=== PATIENT | female | born 1980 | race Two or more races ===

== ENCOUNTER 2019-03-20 16:59 | Observation (INO) | payer OTHER ==
[2019-03-20 17:11] VITALS: BMI 24.9
--- NOTE | 2019-03-20 17:23 | PDOC ---
History of Present Illness - General Chief Complaint: Lightheaded Stated Complaint: CHEST PAIN/DIZZINESS Time Seen by Provider: 03/20/19 17:22 - History of Present Illness Initial Comments: 03/20/19 17:48 The patient is a 38 year old female with a history of asthma and anxiety who presents for evaluation of lightheadedness, palpitations, chest pain, and shortness of breath. The patient reports on episode of palpitations, chest tightness with associated shortness of breath and lightheadedness beginning 1 hour prior to presentation to the ED. She notes that she has had 2 more episodes over the past week presenting to an urgent care each time with negative blood work. She notes that she is on OCPs and otherwise denies fevers , chills, nausea, vomiting, abdominal pain, numbness, tingling, weakness, or changes with urination or bowel movements. Past History - Past Medical History Allergies/Adverse Reactions: Allergies Allergy/AdvReac Type Severity Reaction Status Date / Time No Known Allergies Allergy Verified 03/20/19 17:11 Home Medications: Ambulatory Orders Albuterol Sulfate Inhaler - [Ventolin Hfa Inhaler -] 2 inh PO Q4H 03/20/19 Buspirone HCl [Buspar -] 5 mg PO TID 03/20/19 Fluconazole [Diflucan -] 100 mg PO DAILY 03/20/19 Hydrocodone Bit/Homatrop Me-Br [Hydrocodone-Homatropine Syrup] 5 ml PO HS Asthma: Yes COPD: No - Suicide/Smoking/Psychosocial Hx Smoking History: Never smoked Review of Systems - Review of Systems Comments:: 03/20/19 17:55 Constitutional: No fevers, chills, fatigue, malaise HEENT: No Rhinorrhea, nasal congestion, visual changes Cardiovascular: Chest pain, lightheadedness, palpitations. No syncope, Respiratory: SOB. No Cough, Hemoptysis, Gastrointestinal: No Abdominal pain, Nausea, Vomiting, Constipation, Diarrhea, Melena Genitourinary: No Dysuria, Frequency, Urgency, Hesitancy, Hematuria, Flank pain Musculoskeletal: No Myalgia, arthralgia Skin: No rashes, itching, bruising, pallor Neurologic: No Headache, Dizziness, Numbness, Weakness, or Tingling Psychiatric: No Hallucinations. No SI or HI *Physical Exam - Vital Signs Last Vital Signs Temp Pulse Resp BP Pulse Ox 97.4 F L 105 H 20 137/88 99 03/20/19 17:06 03/20/19 17:06 03/20/19 17:06 03/20/19 17:06 03/20/19 17:06 - Physical Exam Comments: 03/20/19 17:58 General Appearance: Nourished. No Apparent Distress HEENT: No Pharyngeal Erythema, Tonsillar Exudate, Tonsillar Erythema Neck: No Cervical Lymphadenopathy Respiratory/Chest: Lungs Clear, Normal Breath Sounds. No Crackles, Rales, Rhonchi, Wheezing Cardiovascular: Regular Rhythm, Tachycardic Rate. No Murmur, Gallops, Rubs Gastrointestinal/Abdominal: Normal Bowel Sounds, Soft. No Guarding, Rebound, Tenderness Musculoskeletal: No CVA Tenderness Extremity: Normal Capillary Refill Integumentary: Normal Color, Dry, Warm Neurologic: Fully Oriented, Alert, Normal Mood/Affect, Normal Response, Heart Score/ECG Review #1 ECG reviewed & interpreted by me at: 17:58 03/20/19 17:58 HR 106 CO 116 QRS 68 QTc 446 Sinus Tachycardia No acute st changes ED Treatment Course - LABORATORY CBC & Chemistry Diagram: 03/20/19 18:25 03/20/19 18:25 Medical Decision Making - Medical Decision Making 03/20/19 17:59 The patient is a 38 year old female with a history of asthma and anxiety who presents for evaluation of lightheadedness, palpitations, chest pain, and shortness of breath. Differential includes but is not limited to: ACS, Arrhythmia, PE, Anxiety, Infectious, Metabolic Derangement. Given the patient' s history and physical exam, we will obtain a cbc, cmp, coags, d-dimer, troponin , bnp, ua, urine preg, tsh, ekg, chest plain film to evaluate further. We will continue to monitor and reassess while here in the ED. 03/20/19 20:33 CBC, cmp, coags, d-dimer, troponin, bnp, UA are unremarkable. Tsh, urine preg are unremarkable. Chest plain film is unremarkable. The patient remains persistently symptomatic despite treatment with ativan here in the ED. Given her frequent presentations to healthcare facilities this past week with persistent symptoms here in the ED, she will require observation admission for further monitoring and cardiology consultation. We discussed the case with the admitting team who accepted the patient for admission. *DC/Admit/Observation/Transfer Diagnosis at time of Disposition: Shortness of breath, Tachycardia Chest pain Qualifiers: Chest pain type: unspecified Qualified Code(s): R07.9 - Chest pain, unspecified - Discharge Dispostion Condition at time of disposition: Stable Decision to Admit order: Yes - Referrals - Patient Instructions - Post Discharge Activity
[2019-03-20] MEDS ORDERED: SODIUM CHLORIDE 1,000 ML IV STA (17:45)
--- NOTE | 2019-03-20 18:30 | PDOC ---
Documentation entered by Renetta Conteh SCRIBE, acting as scribe for Dino Hardwick MD. Dino Hardwick MD: This documentation has been prepared by the Wero mendoza Aiswarya, SCRIBE, under my direction and personally reviewed by me in its entirety. I confirm that the documentation accurately reflects all work, treatment, procedures, and medical decision making performed by me. Attending Attestation - Resident Resident Name: Renard Perry - ED Attending Attestation I have performed the following: I have examined & evaluated the patient, The case was reviewed & discussed with the resident, I agree w/resident's findings & plan, Exceptions are as noted - HPI HPI: 03/20/19 18:05 38-year-old female with past medical history of asthma presents with palpitations. The patient reported that this is her third episode. She reports 6 days ago, the patient her to feel rapid palpitations associated lightheadedness and chest discomfort. She also had the similar symptoms 5 days ago as well. The patient went to an urgent care and then to Health system emergency department. She reported she received blood work and a chest x-ray and was told that her workup is unremarkable and she was discharged. Today, patient woke up feeling unremarkable. Approximate 4 PM, she was doing nothing particular which she felt sudden onset of rapid palpitations lightheadedness and shortness of breath. Reports some chest discomfort. Patient denies smoking history. Patient has family history of hypertension but no other cardiac disease. She stated that the symptoms have not occurred prior before. She denies feeling anxious prior to the event. She does report feeling somewhat nervous now. Denies recent illnesses, fevers, chills, cough, vomiting, diarrhea. Patient never had a prior cardiac workup including stress tests, Holter monitor or echocardiogram. Because the symptoms have returned, the patient return to the ER for evaluation. Doing medications patient is taking at this moment his fluconazole for recent oral thrush infection for recent prednisone she was taken for an asthma exacerbation. She is also on daily oral contraceptive pills. Denies unilateral calf swelling, calf pain, recent surgeries or hormonal use. - Physicial Exam PE: 03/20/19 18:10 GENERAL: Awake, alert, and fully oriented, in no acute distress HEAD: No signs of trauma EYES: EOMI, sclera anicteric, conjunctiva clear ENT: Auricles normal inspection, hearing grossly normal, nares patent, Moist mucosa NECK: Normal ROM, supple, LUNGS: Breath sounds equal, clear to auscultation bilaterally. No wheezes, and no crackles HEART: Regular rate and rhythm, normal S1 and S2, no murmurs, rubs or gallops ABDOMEN: Soft, nontender, No guarding, no rebound. No masses EXTREMITIES: Normal range of motion, no edema. No clubbing or cyanosis. No cords, erythema, or tenderness NEUROLOGICAL: Cranial nerves II through XII grossly intact. Normal speech, normal gait SKIN: Warm, Dry, normal turgor, no rashes or lesions noted. - Medical Decision Making 03/20/19 18:27 Vital Signs Temp Pulse Resp BP Pulse Ox 97.4 F L 105 H 20 137/88 99 03/20/19 17:06 03/20/19 17:06 03/20/19 17:06 03/20/19 17:06 03/20/19 17:06 38-year-old female presents for third episode of palpitations and lightheadedness. At this time, it is unclear what the etiology of her symptoms are. The EKG does not demonstrate any acute findings at this time. However, we' ll need to further investigate given this is a recurrent visit to the emergency department. Given that the patient is on oral contraceptive pills, we'll need to investigate for potential pulmonary embolism. We'll send a d-dimer. Place patient on cardiac telemetry. Chest x-ray and blood work. Obtain thyroid panel to rule out hyperthyroidism. If the patient remains persistently tachycardic and or symptomatically even with a negative ER workup, the patient should be admitted to the hospital for cardiac consultation, telemetry, and potential other tests including stress test or echocardiogram. Patient does appear somewhat anxious to me and after discussion with the patient, she agrees to trial a small dose of Ativan for relief. 03/20/19 20:09 CBC, BMP 03/20/19 18:25 03/20/19 18:25 CMP Sodium 140 mmol/L (136-145) 03/20/19 18:25 Potassium 4.2 mmol/L (3.5-5.1) 03/20/19 18:25 Chloride 109 mmol/L (98-107) H 03/20/19 18:25 Carbon Dioxide 24 mmol/L (21-32) 03/20/19 18:25 Anion Gap 8 MMOL/L (8-16) 03/20/19 18:25 BUN 9.8 mg/dL (7-18) 03/20/19 18:25 Creatinine 0.8 mg/dL (0.55-1.3) 03/20/19 18:25 Est GFR (CKD-EPI)AfAm 106.88 03/20/19 18:25 Est GFR (CKD-EPI)NonAf 92.22 03/20/19 18:25 Random Glucose 90 mg/dL (74-106) 03/20/19 18:25 Calcium 9.4 mg/dL (8.5-10.1) 03/20/19 18:25 Total Bilirubin 0.3 mg/dL (0.2-1) 03/20/19 18:25 AST 38 U/L (15-37) H 03/20/19 18:25 ALT 34 U/L (13-61) 03/20/19 18:25 Alkaline Phosphatase 47 U/L (45-117) 03/20/19 18:25 Creatine Kinase 1170 U/L (26-192) H 03/20/19 18:25 Creatine Kinase Index 0.1 % (0.0-5.0) 03/20/19 18:25 CK-MB (CK-2) 2.2 ng/mL (0.5-3.6) 03/20/19 18:25 Troponin I < 0.02 ng/ml (0.00-0.05) 03/20/19 18:25 B-Natriuretic Peptide 16.9 pg/ml (5-125) 03/20/19 18:25 Total Protein 7.6 g/dl (6.4-8.2) 03/20/19 18:25 Albumin 4.2 g/dl (3.4-5.0) 03/20/19 18:25 TSH 0.58 uIU/ml (0.358-3.74) 03/20/19 18:25 Urine Test Results Urine Color Yellow 03/20/19 18:25 Urine Appearance Clear 03/20/19 18:25 Urine pH 6.0 (5.0-8.0) 03/20/19 18:25 Ur Specific [place] 1.002 (1.010-1.035) L 03/20/19 18:25 Urine Protein Negative (NEGATIVE) 03/20/19 18:25 Urine Glucose (UA) Negative (NEGATIVE) 03/20/19 18:25 Urine Ketones Negative (NEGATIVE) 03/20/19 18:25 Urine Blood Negative (NEGATIVE) 03/20/19 18:25 Urine Nitrite Negative (NEGATIVE) 03/20/19 18:25 Urine Bilirubin Negative (NEGATIVE) 03/20/19 18:25 Ur Leukocyte Esterase Negative (NEGATIVE) 03/20/19 18:25 Despite negative results (other than CK of 1170, but negative troponin), will admit patient as pt continues to feel persistent symptoms of palpitations and lightheadedness. Because this is her third time this week being evaluated and with negative but with persistent symptoms, will admit patient. Cardiology paged. Pt to be admitted to telemetry. Heart Score/ECG Review #1 ECG reviewed & interpreted by me at: 17:30 03/20/19 17:51 NSR 106, no std/teddy, normal axis, normal intervals, QTC 68 msec, no brugada, no HCM, no WPW
[2019-03-20 18:38] LABS: HCG,QUALITATIVE URINE Negative
[2019-03-20] MEDS ORDERED: LORazepam 1 MG TABLET PO ONE (18:42)
[2019-03-20 18:47] LABS: URINE APPEARANCE CLEAR; URINE BILIRUBIN NEGATIVE (NEGATIVE); URINE COLOR YELLOW; URINE GLUCOSE (UA) NEGATIVE (NEGATIVE); URINE KETONE NEGATIVE (NEGATIVE); URINE LEUK ESTERASE NEGATIVE (NEGATIVE); URINE NITRITE NEGATIVE (NEGATIVE); URINE PROTEIN NEGATIVE (NEGATIVE); URINE UROBILINOGEN 0.2 mg/dL (0.2-1.0)
[2019-03-20 19:00] LABS: BASO % 0.7 % (0-2.0); EOS % 0.8 % (0-4.5); HEMATOCRIT 41.7 % (32.4-45.2); HEMOGLOBIN 13.8 GM/dL (10.7-15.3); LYMPH % 11.9 % (8-40); MCH 31.2 pg (25.7-33.7); MCHC 33.1 g/dl (32.0-36.0); MEAN CELL VOLUME 94.2 fl (80-96); MEAN PLT VOLUME 8.8 fl (7.5-11.1); MONO % 6.8 % (3.8-10.2); NEUT % 79.8 % (42.8-82.8); RBC 4.42 M/mm3 (3.60-5.2); RDW 13.8 % (11.6-15.6); WHITE BLOOD COUNT 9.4 K/mm3 (4.0-10.0)
[2019-03-20 19:06] LABS: PLATELET COUNT 348 K/MM3 (134-434)
[2019-03-20 19:08] LABS: INR 0.97 (0.83-1.09); PROTHROMBIN TIME (PATIENT) 11.5 SEC (9.7-13.0)
[2019-03-20 19:11] LABS: ACTIVATED PTT 28.4 SECONDS (25.2-36.5)
[2019-03-20 19:14] LABS: ALBUMIN 4.2 g/dl (3.4-5.0); ALK PHOS 47 U/L (45-117); ANION GAP 8 MMOL/L (8-16); BILIRUBIN,TOTAL 0.3 mg/dL (0.2-1); BLOOD UREA NITROGEN 9.8 mg/dL (7-18); CALCIUM 9.4 mg/dL (8.5-10.1); CHLORIDE 109 mmol/L (98-107); CO2 24 mmol/L (21-32); CREATININE 0.8 mg/dL (0.55-1.3); GLUCOSE,RANDOM 90 mg/dL (74-106); N-TERMINAL BNP 16.9 pg/ml (5-125); POTASSIUM 4.2 mmol/L (3.5-5.1); SGOT/AST 38 U/L (15-37); SGPT/ALT 34 U/L (13-61); SODIUM 140 mmol/L (136-145); TOT PROT 7.6 g/dl (6.4-8.2)
[2019-03-20] MEDS ORDERED: LORazepam 0.5 MG TABLET ONE (19:37)
[2019-03-20] MEDS ORDERED: ASPIRIN 81 MG CHEWABLE TABLETS PO ONE (20:12)
[2019-03-20] MEDS ORDERED: ASPIRIN 81 MG CHEWABLE TABLETS ONE (21:00)
--- NOTE | 2019-03-20 21:06 | HP ---
Admitting History and Physical - Primary Care Physician PCP: Dr Santos ([facility]) - Admission Chief Complaint: Dizziness and Palpitations History of Present Illness: Pt is 38 yr old f with PMHx of asthma and recently prescribed meds for anxiety presenting after feeling dizzy with palpitations and SOB while walking on the park today. Patient was with friends when it happened, reports it as sudden, nausea, with dizziness, and acute SOB not related to exertion. Pt did not syncopize, took some water but still felt weak. No fevers, no chills, no headaches. Pt reports dizziness but no vertigo, no hearing loss or tinnitus, and has not missed any meals or had vomiting or loose stools. Has been having recurrent symptoms with palpitations and chest tightness since December and has been following her PCP with [facility] for asthma exacerbation. Pt has had 2 steroid tapers since beginning of February, (40mg prednisone for one week from February 22, then 60mg since March 07, stopped on March 15). Pt been treated for oral trush and told her BP has been elevated since seeing her PCP about 3 times in the past month. Prior to this recent tx for asthma, pt reported mild intermittent asthma treated with albuterol inhaler about twice a year. No new pets, no new location, no sick contacts. In December, pt received acyclovir for shingles on the back as she had chicken pox as a child. No hx of migraines. Three months ago, she started a higher dose of OCP. She had been on an OCP for 3 years prior but with irregular menses, hasd the dose escalated recently. Pt admits to having anxiety in past and not been formally diagnosed with anxiety disorder. She denies mood disorders. She is scheduled for a visit with a ocean import representative tomorrow. 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, no contact with harmful chemicals Lives with and kids Denies- ETOH- occ Tobacco denies Drugs-denies History Source: Patient Limitations to Obtaining History: No Limitations - Smoking History Smoking history: Never smoked Home Medications - Allergies Allergies/Adverse Reactions: Allergies Allergy/AdvReac Type Severity Reaction Status Date / Time No Known Allergies Allergy Verified 03/20/19 17:11 - Home Medications Home Medications: Ambulatory Orders Albuterol Sulfate Inhaler - [Ventolin Hfa Inhaler -] 2 inh PO Q4H 03/20/19 Buspirone HCl [Buspar -] 5 mg PO TID 03/20/19 Fluconazole [Diflucan -] 100 mg PO DAILY 03/20/19 Hydrocodone Bit/Homatrop Me-Br [Hydrocodone-Homatropine Syrup] 5 ml PO HS Family Disease History - Family Disease History Family Disease History: Heart Disease: Father (HTN), Mother (HTN, stent), Other : Son (Asthma), Daughter (Asthma) Review of Systems - Review of Systems Constitutional: denies: Chills, Diaphoresis, Fever, Loss of Appetite, Night Sweats Eyes: reports: Photophobia. denies: Blind Spots, Blurred Vision HENT: reports: Difficult Swallowing. denies: Hearing Loss, Throat Pain Neck: denies: Stiffness Cardiovascular: reports: Palpitations, Shortness of Breath. denies: Edema Respiratory: reports: Cough. denies: Exercise Intolerance, SOB on Exertion, Wheezing Gastrointestinal: denies: Abdominal Pain, Constipation, Diarrhea, Vomiting Genitourinary: reports: Frequency, Incontinence. denies: Burning, Discharge Musculoskeletal: denies: Back Pain Integumentary: denies: Blister, Bruising Neurological: denies: Change in LOC, Change in Speech, Confusion, Parasthesia Endocrine: reports: Increased Thirst, Unexplained Weight Gain. denies: Excessive Sweating, Increased Hunger, Unexplained Weight Loss Hematology/Lymphatic: denies: Easily Bruised Psychiatric: reports: Anxiety Physical Examination Vital Signs: Vital Signs Temperature 97.4 F L 03/20/19 17:06 Pulse Rate 103 H 03/20/19 19:44 Respiratory Rate 11 03/20/19 19:44 Blood Pressure 134/95 03/20/19 19:44 O2 Sat by Pulse Oximetry (%) 100 03/20/19 19:44 Constitutional: Yes: Anxious. No: No Distress Eyes: Yes: Conjunctiva Clear, EOM Intact, PERRL. No: Ptosis, Sclera Icterus HENT: Yes: Atraumatic Neck: Yes: Supple Cardiovascular: Yes: Tachycardia, S1, S2 Respiratory: Yes: CTA Bilaterally, Cough. No: Rhonchi, Tachypnea, Wheezes Gastrointestinal: Yes: Normal Bowel Sounds, Soft. No: Tenderness Renal/: Yes: Incontinence. No: CVA Tenderness - Left, CVA Tenderness - Right Musculoskeletal: No: Joint Stiffness, Joint Swelling, Muscle Weakness Edema: No Peripheral Pulses WNL: Yes Integumentary: Yes: Rash. No: Bruising, Petechiae, Pressure Ulcer Neurological: Yes: Alert, Oriented, Cran Nerves II-XII Intact. No: Babinski negative, Facial Droop, Lethargy, Pre-Existing Deficit, Seizure, Tingling, Tremors, Unsteady Gait, Weakness ...Motor Strength: WNL Psychiatric: Yes: Alert, Oriented Labs: CBC, BMP 03/20/19 18:25 03/20/19 18:25 Imaging - Results X-ray: Image Reviewed Assessment/Plan Current Medications Alprazolam (Xanax -) 0.25 mg PO Q8H PRN PRN Reason: ANXIETY Lisinopril (Prinivil) 10 mg PO DAILY SIGIFREDO Last Admin: 03/20/19 22:13 Dose: 10 mg Ambulatory Orders Albuterol Sulfate Inhaler - [Ventolin Hfa Inhaler -] 2 inh PO Q4H 03/20/19 Buspirone HCl [Buspar -] 5 mg PO TID 03/20/19 Fluconazole [Diflucan -] 100 mg PO DAILY 03/20/19 Hydrocodone Bit/Homatrop Me-Br [Hydrocodone-Homatropine Syrup] 5 ml PO HS Assessment/Plan: Pt is a 38 yr old F with asthma, recent anxiety diagnosis, recent steroid taper , on escalated OCPS, presenting with palpitations and chest tightness found to be in sinus tachycardia and hypertensive #Palpitations Sinus tachy, no ishemic changes Initial trop negative Likely in setting of anxiety Patient started on buspirone, has received only 2 doses Xanax 0.25 q8h Prn Cont buspar utox pending Ddimer< 215, TSH- 0.58 #Chest tightness R/O ACP Unlikely cardiac chest pain, more likely anxiety related Initial trops negative, will repeat Cards consult- Dr Day Repeat EKG tele obs Consider holter monitoring ECHO likely to be normal may hold off for now #Anxiety disorder Per pt has not been formally diagnosed Recently prescribed buspar over the past week stopped taking the medication because she did not feel improved Psych consult- Dr Jarad ramírez Cont buspar #asthma Not in any exacerbation Described mild intermittent on only albuterol 2 times a year Recently on PO steroid taper for up to 3 weeks Stopped steroids last Thursday PO Steroids could contribute to cardiac symptoms Cont Albuterol PRN if needed (would hold for now, as tachycardiac) Consider home steroid inhalers on discharge Abg- negative, pt sating well in room air #Tachycardia Sinus tachy, no fever, nl TSH, no pain Likely in setting of anxiety Cont xanax, buspar Psych consult No white count, UA, CXR negative Ddimer- negative, Well's score for PE-1.5 (low risk) #High bLood pressure Elevated up to 147/105 (standing) Could have been precipitated by steroids Fhx of HTN Lisinopril 10mg daily Stop steroids #Elevated isolated [id number] 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 - New Patient This patient is new to me today: Yes Date on this admission: 03/20/19 - Critical Care Critical Care patient: No
--- NOTE | 2019-03-20 21:55 | PN ---
Teaching Attending Note Name of Resident: Cathy Sotelo ATTENDING PHYSICIAN STATEMENT I saw and evaluated the patient. Chart, data, imaging reviewed. I reviewed the resident's note and discussed the case with the resident. I agree with the resident's findings and plan as documented. SUBJECTIVE: 38yo woman with anxiety, intermittent asthma c/o palpitations and anxiety for several days, was previously on prednisone po rx- ed by her pcp for - intermittent asthma, now off prednisone for at least a week. Denied any chest pain. OBJECTIVE: Last Vital Signs Temp Pulse Resp BP Pulse Ox 97.4 F L 103 H 11 134/95 100 03/20/19 17:06 03/20/19 19:44 03/20/19 19:44 03/20/19 19:44 03/20/19 19:44 General- appears anxious, nontoxic heent- at, nc, moist mucous membranes cv- s1+S2+ tachycardia chest - cta b/l abdomen- soft, nt ext -no pedal edema Abnormal Lab Results 03/20/19 03/20/19 03/20/19 18:25 18:25 21:36 ABG pCO2 at Pt Temp 30.1 L ABG pO2 at Pt Temp 115 H ABG HCO3 20.0 L ABG O2 Sat (Measured) 98.7 H ABG Base Excess -2.7 L Chloride 109 H AST 38 H Creatine Kinase 1170 H Ur Specific [place] 1.002 L ekg- sinus tachy cxr- wnl ASSESSMENT AND PLAN: #Sinus tachycardia likely related to underlying anxiety. Normal tsh. Intermittent palpitations- occult arrythmia? -tele-obs -xanax prn -c/w buspirone -monitor on tele -psych eval -cardiology eval - possible holter? -urine toxicology screen #HTN -2g Na diet -lisinopril 10mg po daily #dvt ppx -scds
[2019-03-20] MEDS ORDERED: ALPRAZolam 0.25 MG TABLET PO PRN (21:59)
[2019-03-20 22:01] LABS: ARTERIAL BLD GAS O2 SATURATION 98.7 % (95-98); ARTERIAL BLOOD GAS BASE EXCESS -2.7 meq/l (-2-2); ARTERIAL BLOOD GAS PCO2 30.1 mmHg (35-45); ARTERIAL BLOOD GAS PO2 115 mmHg (80-105); ARTERIAL BLOOD GAS pH 7.44 (7.35-7.45)
[2019-03-20 22:04] LABS: MAGNESIUM 2.2 mg/dL (1.8-2.4)
[2019-03-20] MEDS ORDERED: LISINOPRIL 5 MG TABLET (FP) ONE (22:10)
[2019-03-20] MEDS: LISINOPRIL 10 MG TABLET (FP) PO SCH (22:13)
[2019-03-20] MEDS ORDERED: ALBUTEROL SO4 8 GM HFA INHALER IH PRN (22:34)
[2019-03-21] MEDS: busPIRone HCL 5 MG TABLET PO SCH ×3 (00:27→15:03)
[2019-03-21] MEDS ORDERED: busPIRone HCL 5 MG TABLET ONE (02:25)
[2019-03-21 06:57] LABS: BASO % 1.8 % (0-2.0); EOS % 4.1 % (0-4.5); HEMATOCRIT 36.4 % (32.4-45.2); HEMOGLOBIN 11.9 GM/dL (10.7-15.3); LYMPH % 19.2 % (8-40); MCH 30.9 pg (25.7-33.7); MCHC 32.8 g/dl (32.0-36.0); MEAN CELL VOLUME 94.2 fl (80-96); MEAN PLT VOLUME 8.6 fl (7.5-11.1); MONO % 10.7 % (3.8-10.2); NEUT % 64.2 % (42.8-82.8); PLATELET COUNT 279 K/MM3 (134-434); RBC 3.87 M/mm3 (3.60-5.2); RDW 13.8 % (11.6-15.6); WHITE BLOOD COUNT 5.4 K/mm3 (4.0-10.0)
[2019-03-21 07:17] LABS: INR 1.03 (0.83-1.09); PROTHROMBIN TIME (PATIENT) 12.1 SEC (9.7-13.0)
[2019-03-21 07:20] LABS: ACTIVATED PTT 28.4 SECONDS (25.2-36.5)
[2019-03-21 07:28] LABS: ALBUMIN 3.2 g/dl (3.4-5.0); BILIRUBIN,TOTAL 0.6 mg/dL (0.2-1); BLOOD UREA NITROGEN 5.3 mg/dL (7-18); CALCIUM 8.5 mg/dL (8.5-10.1); CREATININE 0.7 mg/dL (0.55-1.3); MAGNESIUM 2.4 mg/dL (1.8-2.4); PHOSPHOROUS 3.4 mg/dL (2.5-4.9); POTASSIUM 4.2 mmol/L (3.5-5.1); TOT PROT 5.9 g/dl (6.4-8.2)
--- NOTE | 2019-03-21 09:35 | EKG ---
Test Reason : Blood Pressure : / mmHG Vent. Rate : 106 BPM Atrial Rate : 106 BPM P-R Int : 116 ms QRS Dur : 068 ms QT Int : 336 ms P-R-T Axes : 060 -09 048 degrees QTc Int : 446 ms SINUS TACHYCARDIA POSSIBLE LEFT ATRIAL ENLARGEMENT BORDERLINE ECG NO PREVIOUS ECGS AVAILABLE Confirmed by DERRICK DRAKE MD ([id number]) on 03/21/2019 9:35:03 AM Referred By: Confirmed By:DERRICK DRAKE MD
[2019-03-21] MEDS ORDERED: LISINOPRIL 5 MG TABLET (FP) ONE (10:21)
[2019-03-21] MEDS: LISINOPRIL 10 MG TABLET (FP) PO SCH (10:24)
--- NOTE | 2019-03-21 10:44 | CON.CARD ---
Consult Consult Specialty:: Cardiology Referred by:: Hospitalist Reason for Consultation:: Cardiac evaluation - History of Present Illness Chief Complaint: Palpitations History of Present Illness: Patient is a 38 year old female with underlying history of bronchial asthma who presents with palpitations. She was at [facility] ER last Thursday when she was sent from [facility] with palpitations. She was discharged home after observation. She complained of another episode over the weekend which prompted her to come into ED here at [facility]. She also complained of dizziness. She denies chest pain or shortness of breath. She denies paroxysmal nocturnal dyspnea or orthopnea. She denies fever or chills. She denies nausea, vomiting, diarrhea or abdominal pain. She states she did not take any bronchodilators prior to the palpitations. She appears comfortable this am. Denies prior syncopal episodes - History Source History Provided By: Patient, Medical Record Limitations to Obtaining History: No Limitations - Past Medical History Pulmonary: Yes: Asthma - Past Surgical History Additional Surgical History: s/p oopherectomy (1 ovary), breast implant - Alcohol/Substance Use Hx Alcohol Use: No History of Substance Use: reports: None - Smoking History Smoking history: Never smoked Home Medications - Allergies Allergies/Adverse Reactions: Allergies Allergy/AdvReac Type Severity Reaction Status Date / Time No Known Allergies Allergy Verified 03/20/19 17:11 - Home Medications Home Medications: Ambulatory Orders Albuterol Sulfate Inhaler - [Ventolin Hfa Inhaler -] 2 inh PO Q4H 03/20/19 Buspirone HCl [Buspar -] 5 mg PO TID 03/20/19 Fluconazole [Diflucan -] 100 mg PO DAILY 03/20/19 Hydrocodone Bit/Homatrop Me-Br [Hydrocodone-Homatropine Syrup] 5 ml PO HS Family Disease History - Family Disease History Family Disease History: Heart Disease: Father (HTN), Mother (HTN, stent), Other : Son (Asthma), Daughter (Asthma) Review of Systems - Review of Systems Constitutional: denies: Chills, Fever Cardiovascular: reports: Palpitations. denies: Chest Pain, Shortness of Breath Respiratory: denies: Cough, Hemoptysis, Orthopnea, PND, SOB, SOB on Exertion, Wheezing Gastrointestinal: denies: Abdominal Pain, Constipation, Diarrhea, Melena, Nausea , Rectal Bleeding, Vomiting Musculoskeletal: denies: Back Pain, Joint Pain Neurological: reports: Dizziness. denies: Headache, Seizure, Syncope Vital Signs: Vital Signs Temperature 97.8 F 03/21/19 05:16 Pulse Rate 85 03/21/19 05:16 Respiratory Rate 20 03/21/19 05:16 Blood Pressure 101/67 03/21/19 05:16 O2 Sat by Pulse Oximetry (%) 100 03/21/19 05:16 Eyes: Yes: PERRL HENT: Yes: Atraumatic Neck: Yes: Supple Respiratory: Yes: CTA Bilaterally Gastrointestinal: Yes: Normal Bowel Sounds, Soft. No: Tenderness Cardiovascular: Yes: Regular Rate and Rhythm JVD: No Carotid Bruit: No PMI: Non-Displaced Heart Sounds: Yes: S1, S2. No: Gallop Murmur: No: Systolic Murmur, Diastolic Murmur Edema: No - Other Data Labs, Other Data: CBC, BMP 03/21/19 06:30 03/21/19 06:30 INR, PTT INR 1.03 (0.83-1.09) 03/21/19 06:30 Troponin, BNP 03/20/19 03/20/19 18:25 23:48 Troponin I < 0.02 < 0.02 B-Natriuretic Peptide 16.9 Sinus tachycardia, nonspecific T abnormality Echo: Pending Problem List - Problems (1) Palpitations Code(s): R00.2 - PALPITATIONS (2) Sinus tachycardia by electrocardiogram Code(s): R00.0 - TACHYCARDIA, UNSPECIFIED (3) Elevated CK Code(s): R74.8 - ABNORMAL LEVELS OF OTHER SERUM ENZYMES Assessment/Plan 1. Palpitations (currently sinus tachycardia) 2. Bronchial asthma 3. Elevated CK, ? etiology PLAN: 1. Etiology of above palpitations to be evaluated 2. Echocardiography to assess LV/RV and valvular function 3. Telemetry monitoring and if needed will need extended heart monitoring ? inappropriate sinus tachycardia 4. Trend CK 5. Further plans are to follow Avel Day MD
[2019-03-21] MEDS ORDERED: FLUCONAZOLE 100 MG TABLET (UD) PO SCH (12:45)
[2019-03-21] MEDS ORDERED: FLUCONAZOLE 100 MG TABLET (UD) ONE ×2 (12:51→15:42)
[2019-03-21 13:37] LABS: COCAINE, UR NEGATIVE ng/ml (CUTOFF=300); METHADONE, UR NEGATIVE ng/ml (CUTOFF=300); OPIATES, URI NEGATIVE ng/ml (CUTOFF=300); PHENCYCLIDINE,URINE NEGATIVE ng/ml (CUTOFF=25); URINE AMPHETAMINES NEGATIVE ng/ml (CUTOFF=500); URINE BARBITURATES NEGATIVE ng/ml (CUTOFF=200); URINE BENZODIAZEPINES NEGATIVE ng/ml (CUTOFF=200)
[2019-03-21] MEDS ORDERED: FLUCONAZOLE 150 MG TABLET PO SCH (15:15)
--- NOTE | 2019-03-21 16:15 | ECHO ---
Name: LANCE BAIRES Exam:Adult Echocardiogram Study Date: 03/21/2019 02:16 PM Age: 38 yrs Reason For Study: palpitations Height: 61 in Weight: 136 lb BSA: 1.6 m2 MMode/2D Measurements & Calculations IVSd: 0.77 cm Ao root diam: 3.1 cm LVIDd: 3.6 cm LA dimension: 2.7 cm LVIDs: 2.4 cm LVPWd: 0.79 cm IVSs: 0.89 cm LVPWs: 1.1 cm EDV(Teich): 55.4 ml ESV(Teich): 20.9 ml Doppler Measurements & Calculations MV E max jayme: 91.3 cm/sec Ao V2 max: 114.0 cm/sec MV A max jayme: 76.0 cm/sec Ao max P.2 mmHg MV E/A: 1.2 Ao V2 mean: 83.5 cm/sec Ao mean P.2 mmHg Ao V2 VTI: 20.3 cm TR max jayme: 203.6 cm/sec Med Peak E' Jayme: 8.8 cm/sec TR max P.6 mmHg Med E/e': 10.4 Lat Peak E' Jayme: 13.3 cm/sec Lat E/e': 6.9 Procedure A complete two-dimensional transthoracic echocardiogram was performed (2D, M-mode, Doppler and color flow Doppler). Technically limited study. Left Ventricle The left ventricle is normal in size. Left ventricular systolic function is normal. Ejection Fraction = 60- 65%. No regional wall motion abnormalities noted. Right Ventricle The right ventricle is normal size. The right ventricular systolic function is normal. Atria The left atrial size is normal. Right atrial size is normal. Mitral Valve The mitral valve is normal in structure and function. There is no mitral regurgitation noted. Tricuspid Valve The tricuspid valve is normal in structure and function. There is mild tricuspid regurgitation. Right ventricular systolic pressure is normal. Aortic Valve The aortic valve is normal in structure and function. No aortic regurgitation is present. Pulmonic Valve The pulmonic valve is not well visualized. Great Vessels The aortic root is normal size. Pericardium/Pleura There is no pericardial effusion. Interpretation Summary The left ventricle is normal in size. Left ventricular systolic function is normal. No regional wall motion abnormalities noted. Ejection Fraction = 60-65%. The right ventricular systolic function is normal. The left atrial size is normal. Right atrial size is normal. There is mild tricuspid regurgitation. Right ventricular systolic pressure is normal. There is no pericardial effusion. Previous study is not available for comparison Avel Day MD 03/21/2019 04:15 PM
--- NOTE | 2019-03-21 16:25 | DS ---
Physical Exam: SUBJECTIVE: Patient assessed at bedside today. She complains of a sore throat with resolving shortness of breath. Echo performed today with results below. Patient has agreed to HIV testing. OBJECTIVE: Vital Signs Period Temp Pulse Resp BP Sys/Perez Pulse Ox Last 24 Hr 97.4 F-98.4 F 82-105 11-20 101-137/67-95 98-100 PHYSICAL EXAM GENERAL: AAOx3 NAD HEENT: Normocephalic atraumatic. No lymphadenopathy. NECK: Mildly tender. LUNGS: B/l mid and lower lung lobe wheezing noted HEART: Regular rate and rhythm, S1, S2 without murmur, rub or gallop. ABDOMEN: Soft, NTND, + bowel sounds, no guarding, no rebound, no hepatosplenomegaly, no masses. EXTREMITIES: 2+ pulses, warm, well-perfused, no edema. PSYCH: Normal mood, normal affect. SKIN: Warm, dry, normal turgor, no rashes or lesions noted. LABS Laboratory Results - last 24 hr 03/20/19 03/20/19 03/20/19 11:55 18:25 18:25 WBC 9.4 RBC 4.42 Hgb 13.8 Hct 41.7 MCV 94.2 MCH 31.2 MCHC 33.1 RDW 13.8 Plt Count 348 MPV 8.8 Absolute Neuts (auto) 7.5 Neutrophils % 79.8 Lymphocytes % 11.9 Monocytes % 6.8 Eosinophils % 0.8 Basophils % 0.7 Nucleated RBC % 0 PT with INR 11.50 INR 0.97 PTT (Actin FS) 28.4 D-Dimer Anticoagulation Therapy Puncture Site ABG pH ABG pCO2 at Pt Temp ABG pO2 at Pt Temp ABG HCO3 ABG O2 Sat (Measured) ABG O2 Content ABG Base Excess Duran Test O2 Delivery Device Oxygen Flow Rate Vent Mode Vent Rate Mechanical Rate Pressure Support Vent Sodium Potassium Chloride Carbon Dioxide Anion Gap BUN Creatinine Est GFR (CKD-EPI)AfAm Est GFR (CKD-EPI)NonAf Random Glucose Hemoglobin A1c % Calcium Phosphorus Magnesium Total Bilirubin AST ALT Alkaline Phosphatase Creatine Kinase Creatine Kinase Index CK-MB (CK-2) Troponin I B-Natriuretic Peptide Total Protein Albumin TSH Urine Color Urine Appearance Urine pH Ur Specific [place] Urine Protein Urine Glucose (UA) Urine Ketones Urine Blood Urine Nitrite Urine Bilirubin Urine Urobilinogen Ur Leukocyte Esterase Urine HCG, Qual Opiates Screen Methadone Screen Barbiturate Screen Phencyclidine Screen Ur Amphetamines Screen MDMA (Ecstasy) Screen Benzodiazepines Screen Cocaine Screen U Marijuana (THC) Screen RSV Rapid Negative 03/20/19 03/20/19 03/20/19 18:25 18:25 18:25 WBC RBC Hgb Hct MCV MCH MCHC RDW Plt Count MPV Absolute Neuts (auto) Neutrophils % Lymphocytes % Monocytes % Eosinophils % Basophils % Nucleated RBC % PT with INR INR PTT (Actin FS) D-Dimer < 215 Anticoagulation Therapy Puncture Site ABG pH ABG pCO2 at Pt Temp ABG pO2 at Pt Temp ABG HCO3 ABG O2 Sat (Measured) ABG O2 Content ABG Base Excess Duran Test O2 Delivery Device Oxygen Flow Rate Vent Mode Vent Rate Mechanical Rate Pressure Support Vent Sodium 140 Potassium 4.2 Chloride 109 H Carbon Dioxide 24 Anion Gap 8 BUN 9.8 Creatinine 0.8 Est GFR (CKD-EPI)AfAm 106.88 Est GFR (CKD-EPI)NonAf 92.22 Random Glucose 90 Hemoglobin A1c % Calcium 9.4 Phosphorus Magnesium 2.2 Total Bilirubin 0.3 AST 38 H ALT 34 Alkaline Phosphatase 47 Creatine Kinase 1170 H Creatine Kinase Index 0.1 CK-MB (CK-2) 2.2 Troponin I < 0.02 B-Natriuretic Peptide 16.9 Total Protein 7.6 Albumin 4.2 TSH 0.58 Urine Color Yellow Urine Appearance Clear Urine pH 6.0 Ur Specific [place] 1.002 L Urine Protein Negative Urine Glucose (UA) Negative Urine Ketones Negative Urine Blood Negative Urine Nitrite Negative Urine Bilirubin Negative Urine Urobilinogen 0.2 Ur Leukocyte Esterase Negative Urine HCG, Qual Negative Opiates Screen Methadone Screen Barbiturate Screen Phencyclidine Screen Ur Amphetamines Screen MDMA (Ecstasy) Screen Benzodiazepines Screen Cocaine Screen U Marijuana (THC) Screen RSV Rapid 03/20/19 03/20/19 03/20/19 18:25 21:36 23:48 WBC RBC Hgb Hct MCV MCH MCHC RDW Plt Count MPV Absolute Neuts (auto) Neutrophils % Lymphocytes % Monocytes % Eosinophils % Basophils % Nucleated RBC % PT with INR INR PTT (Actin FS) D-Dimer Anticoagulation Therapy No Result Required. Puncture Site Right radial ABG pH 7.44 ABG pCO2 at Pt Temp 30.1 L ABG pO2 at Pt Temp 115 H ABG HCO3 20.0 L ABG O2 Sat (Measured) 98.7 H ABG O2 Content 17.1 ABG Base Excess -2.7 L Duran Test No Result Required. O2 Delivery Device No Result Required. Oxygen Flow Rate 21% Vent Mode Room air Vent Rate No Result Required. Mechanical Rate No Result Required. Pressure Support Vent No Result Required. Sodium Potassium Chloride Carbon Dioxide Anion Gap BUN Creatinine Est GFR (CKD-EPI)AfAm Est GFR (CKD-EPI)NonAf Random Glucose Hemoglobin A1c % 5.3 Calcium Phosphorus Magnesium Total Bilirubin AST ALT Alkaline Phosphatase Creatine Kinase 880 H Creatine Kinase Index 0.1 CK-MB (CK-2) 1.7 Troponin I < 0.02 B-Natriuretic Peptide Total Protein Albumin TSH Urine Color Urine Appearance Urine pH Ur Specific [place] Urine Protein Urine Glucose (UA) Urine Ketones Urine Blood Urine Nitrite Urine Bilirubin Urine Urobilinogen Ur Leukocyte Esterase Urine HCG, Qual Opiates Screen Methadone Screen Barbiturate Screen Phencyclidine Screen Ur Amphetamines Screen MDMA (Ecstasy) Screen Benzodiazepines Screen Cocaine Screen U Marijuana (THC) Screen RSV Rapid 03/21/19 03/21/19 03/21/19 06:30 06:30 06:30 WBC 5.4 RBC 3.87 Hgb 11.9 Hct 36.4 MCV 94.2 MCH 30.9 MCHC 32.8 RDW 13.8 Plt Count 279 MPV 8.6 Absolute Neuts (auto) 3.5 Neutrophils % 64.2 Lymphocytes % 19.2 D Monocytes % 10.7 H Eosinophils % 4.1 D Basophils % 1.8 Nucleated RBC % 0 PT with INR 12.10 INR 1.03 PTT (Actin FS) 28.4 D-Dimer Anticoagulation Therapy Puncture Site ABG pH ABG pCO2 at Pt Temp ABG pO2 at Pt Temp ABG HCO3 ABG O2 Sat (Measured) ABG O2 Content ABG Base Excess Duran Test O2 Delivery Device Oxygen Flow Rate Vent Mode Vent Rate Mechanical Rate Pressure Support Vent Sodium 140 Potassium 4.2 Chloride 110 H Carbon Dioxide 26 Anion Gap 4 L BUN 5.3 L Creatinine 0.7 Est GFR (CKD-EPI)AfAm 125.61 Est GFR (CKD-EPI)NonAf 108.38 Random Glucose 80 Hemoglobin A1c % Calcium 8.5 Phosphorus 3.4 Magnesium 2.4 Total Bilirubin 0.6 AST 29 ALT 29 Alkaline Phosphatase 36 L Creatine Kinase Creatine Kinase Index CK-MB (CK-2) Troponin I B-Natriuretic Peptide Total Protein 5.9 L Albumin 3.2 L TSH Urine Color Urine Appearance Urine pH Ur Specific [place] Urine Protein Urine Glucose (UA) Urine Ketones Urine Blood Urine Nitrite Urine Bilirubin Urine Urobilinogen Ur Leukocyte Esterase Urine HCG, Qual Opiates Screen Methadone Screen Barbiturate Screen Phencyclidine Screen Ur Amphetamines Screen MDMA (Ecstasy) Screen Benzodiazepines Screen Cocaine Screen U Marijuana (THC) Screen RSV Rapid 03/21/19 11:55 WBC RBC Hgb Hct MCV MCH MCHC RDW Plt Count MPV Absolute Neuts (auto) Neutrophils % Lymphocytes % Monocytes % Eosinophils % Basophils % Nucleated RBC % PT with INR INR PTT (Actin FS) D-Dimer Anticoagulation Therapy Puncture Site ABG pH ABG pCO2 at Pt Temp ABG pO2 at Pt Temp ABG HCO3 ABG O2 Sat (Measured) ABG O2 Content ABG Base Excess Duran Test O2 Delivery Device Oxygen Flow Rate Vent Mode Vent Rate Mechanical Rate Pressure Support Vent Sodium Potassium Chloride Carbon Dioxide Anion Gap BUN Creatinine Est GFR (CKD-EPI)AfAm Est GFR (CKD-EPI)NonAf Random Glucose Hemoglobin A1c % Calcium Phosphorus Magnesium Total Bilirubin AST ALT Alkaline Phosphatase Creatine Kinase Creatine Kinase Index CK-MB (CK-2) Troponin I B-Natriuretic Peptide Total Protein Albumin TSH Urine Color Urine Appearance Urine pH Ur Specific [place] Urine Protein Urine Glucose (UA) Urine Ketones Urine Blood Urine Nitrite Urine Bilirubin Urine Urobilinogen Ur Leukocyte Esterase Urine HCG, Qual Opiates Screen Negative Methadone Screen Negative Barbiturate Screen Negative Phencyclidine Screen Negative Ur Amphetamines Screen Negative MDMA (Ecstasy) Screen Negative Benzodiazepines Screen Negative Cocaine Screen Negative U Marijuana (THC) Screen Negative RSV Rapid Imaging: CXR 03/20: No acute chest pathology. No comparison studies EKG 03/20: Sinus tachycardia. Possible left atrial enlargement. Rate 106; QTc 446 Echo 03/21: LV normal. LV systolic funxtion normal. No regional wall motion abnormalities. EF 60-65%. RV systolic fxn normal. LA size normal. Mild tricuspid regurg. RV systolic pressure normal. No pericardial effusion. HOSPITAL COURSE: Date of Admission:03/20/19 Date of Discharge: 03/21/19 Pt is a 38 yr old F with asthma, recent anxiety diagnosis, recent steroid taper , on escalated OCPS, presenting with palpitations and chest tightness found to be in sinus tachycardia and hypertensive. Lab work, imaging and echo noted above. Cardiology was consulted and recommended echocardiogram which di dnot reveal any pathology. Trops <0.02 x 2. U-tox negative. Her BP was elevated on admission however remained normotensive throughout her hospital stay. During her stay, patient continued her home anti-anxiety medications. Her symptoms resolved and patient was discharged home with strict instruction to follow up with her PCP. Patient amenable to plan. Minutes to complete discharge: 36 Discharge Summary Reason For Visit: SHORTNESS OF BREATH,TACHYCARDIA,CHEST PAIN Current Active Problems Chest pain (Acute) Elevated CK (Acute) Palpitations (Acute) Sinus tachycardia by electrocardiogram (Acute) Tachycardia (Acute) Condition: Stable - Instructions Diet, Activity, Other Instructions: You presented to the hospital with palpitations. Your echocardiogram did not reveal pathology. Follow up with the following physicians: 1. PCP Dr. Santos in one week, please call to schedule follow up to further manage your palpitations. You will likely need a referral to further manage your anxiety. 2. Please follow up with Dr. Abraham outpatient. Please continue to monitor your blood pressure. If it remains high you may need medication to control it. Please continue taking your fluconazole as prescribed. Please continue to monitor your diet as you need to intake less sugar and drink plenty of fluids. Continue to consume fluids regularly. Continue all your other medications as prescribed. Please return to the ER if you have any signs or symptoms of chest pain, shortness of breath, uncontrollable fever, chills, nausea, vomiting, numbness, tingling, or weakness in any part of your body, changes in vision, or slurred speech. Please return to the ER if symptoms persist, worsen, or new symptoms arise. Disposition: HOME - Home Medications Comprehensive Discharge Medication List: Ambulatory Orders Albuterol Sulfate Inhaler - [Ventolin HFA Inhaler -] 2 inh PO Q4H 03/20/19 Buspirone HCl [Buspar -] 5 mg PO TID 03/20/19 Fluconazole [Diflucan -] 150 mg PO DAILY 03/20/19 This patient is new to me today: Yes Date on this admission: 03/21/19 Emergency Visit: Yes ED Registration Date: 03/20/19 Care time: The patient presented to the Emergency Department on the above date and was hospitalized for further evaluation of their emergent condition. Critical Care patient: No - Discharge Referral Referred to [facility] Med P.C.: No
--- NOTE | 2019-03-21 16:49 | PN ---
Teaching Attending Note Name of Resident: Laura Coleman ATTENDING PHYSICIAN STATEMENT I saw and evaluated the patient. I reviewed the resident's note and discussed the case with the resident. I agree with the resident's findings and plan as documented. SUBJECTIVE:conitnues to have intermittent palpitations. not related to activity. no assoc cp. was recently treated for asthma exacerbation with inhalers and steroids which she just completed. denies Cp, SOB, fever, chills, n /V/C/d OBJECTIVE: Last Vital Signs Temp Pulse Resp BP Pulse Ox 97.8 F 85 20 101/67 100 03/21/19 05:16 03/21/19 05:16 03/21/19 05:16 03/21/19 05:16 03/21/19 05:16 General NAd CV S1 s2 RRR no murmur/rub/gallop Lungs CTA B/l no wheezing/rales/rhonchi ASSESSMENT AND PLAN: 38yo f wtih PMH asthma was recently on steroids coming in with palpitations 1. Palpitation- sinus tachycardia seen on monitor when first arrived. now currently 85bpm and claiming of palpitations but not appreciated on the monitor. palpitations could be due to albuterol inhlaer, steroid use eventhough she just completed treatment vs anxiety. is already on buspar which suggests she suffers from anxiety although she denies it. echo done not showing any abnormalities. Psych consulted but he is unable to evaluate the patient today. pt does not appear to be a threat to herself or others. seems that she is able to follow up with PMD and psych as outpatient for initiation of medications if appropriate and further testing if indicated
[2019-03-21 18:22] VITALS: BP 108/75; PULSE 80; TEMP 98
== END 2019-03-21 19:12 | disposition home or self-care (01) ==
LOC: JER 16:59 → JERBED 20:15 → J4W 03-21 17:14
PROVIDERS: ADMIT Internal Medicine; ATTEND Internal Medicine
PROC: 3E0337Z Introduction of Electrolytic and Water Balance Substance into Peripheral Vein, Percutaneous Approach (ICD-10-PCS; principal; 2019-03-20)
DX: R00.2 Palpitations (principal); R00.0 Tachycardia, unspecified; R07.89 Other chest pain; R06.02 Shortness of breath; F41.9 Anxiety disorder, unspecified; J45.909 Unspecified asthma, uncomplicated; I10 Essential (primary) hypertension; R74.8 Abnormal levels of other serum enzymes; R35.0 Frequency of micturition
CPT/HCPCS: 36415; 36600; 71046-TC-FY; 80053; 80307; 81003; 82550; 82553; 82803; 83036; 83735; 83880; 84100; 84443; 84484; 84703; 85025; 85379; 85610; 85730; 87807; 93005; 93010; 93306-TC; 96360; 99285-25; G0378; J7030

== ENCOUNTER 2019-11-07 23:56 | Emergency (ER) | payer OTHER ==
--- NOTE | 2019-11-08 00:26 | PDOC ---
History of Present Illness - General Chief Complaint: Cold Symptoms Stated Complaint: RASH,DIFFICULTY BREATHING Time Seen by Provider: 11/08/19 00:26 - History of Present Illness Initial Comments: HPI: 39yo F with PMH of asthma, anxiety, ?autoimmune disorder presenting with multiple complaints including cough, rash, and shortness of breath. Patient reports that she has had multiple symptoms including joint pain, dry mouth, shortness of breath, sore throat for which she has been evaluated by a remote broadcast technician. Patient saw her remote broadcast technician today for follow-up and was told that she had a positive result for which further evaluation is planned. Patient went to the urgent care clinic downstairs for evaluation of her other symptoms. As her symptoms did not improve, she decided to come to the ED. Concerned about seeing a small amount of blood after a coughing fit. On an IUD which she believes is the mirena. No hemoptysis, no recent surgical history, no recent immobilization, no history of DVT or PE. Denies fever and chills. ROS: Constitutional: no fever, no chills HEENT: no throat pain, no dysphagia Cardiovascular: no chest pain, no palpitations Respiratory: +cough, +shortness of breath Gastrointestinal: no abdominal pain, no nausea Genitourinary: no dysuria, no hematuria Musculoskeletal: no myalgia, +arthralgia Skin: +rash, no itching Neurologic: no headache, no weakness Psych: no agitation, no anxiety PE: General: Awake, alert, and fully oriented, in no acute distress Head: No signs of trauma Eyes: EOMI, sclera anicteric ENT: Moist mucus membranes Neck: Normal ROM, supple Lungs: Lungs clear, Normal breath sounds Cardio: Regular rhythm, S1 and S2 present Abdomen: Soft, nontender. No guarding, no rebound, no masses Extremities: Normal range of motion, Distal pulses present SKIN: Warm, Dry, normal turgor Neurologic: Cranial nerves II through XII grossly intact. Normal speech ED Course/MDM: DDX including but not limited to bronchitis, pneumonia, PE, anxiety Concern for tachycardia Appreciated 93% oxygen saturation- This is likely because of the long acrylic nails on the patient's fingers. I repeated the pulse ox using a different sensor and patient was 99% on room air. Labs, EKG, CXR Albuterol EKG: rate 122, QTc 458, sinus tachy 11/08/19 00:26 CBC WBC 6.1 K/mm3 (4.0-10.0) 11/08/19 01:15 RBC 4.64 M/mm3 (3.60-5.2) 11/08/19 01:15 Hgb 14.0 GM/dL (10.7-15.3) 11/08/19 01:15 Hct 42.1 % (32.4-45.2) D 11/08/19 01:15 MCV 90.7 fl (80-96) 11/08/19 01:15 MCH 30.2 pg (25.7-33.7) 11/08/19 01:15 MCHC 33.3 g/dl (32.0-36.0) 11/08/19 01:15 RDW 13.3 % (11.6-15.6) 11/08/19 01:15 Plt Count 370 K/MM3 (134-434) D 11/08/19 01:15 MPV 8.8 fl (7.5-11.1) 11/08/19 01:15 Absolute Neuts (auto) 5.4 K/mm3 (1.5-8.0) 11/08/19 01:15 Neutrophils % 88.7 % (42.8-82.8) H D 11/08/19 01:15 Lymphocytes % 8.2 % (8-40) D 11/08/19 01:15 Monocytes % 2.5 % (3.8-10.2) L 11/08/19 01:15 Eosinophils % 0.0 % (0-4.5) D 11/08/19 01:15 Basophils % 0.6 % (0-2.0) 11/08/19 01:15 Nucleated RBC % 0 % (0-0) 11/08/19 01:15 No leukocytosis CMP Sodium 139 mmol/L (136-145) 11/08/19 01:15 Potassium 4.6 mmol/L (3.5-5.1) 11/08/19 01:15 Chloride 106 mmol/L (98-107) 11/08/19 01:15 Carbon Dioxide 26 mmol/L (21-32) 11/08/19 01:15 Anion Gap 7 MMOL/L (8-16) L 11/08/19 01:15 BUN 11.6 mg/dL (7-18) 11/08/19 01:15 Creatinine 0.8 mg/dL (0.55-1.3) 11/08/19 01:15 Est GFR (CKD-EPI)AfAm 106.13 11/08/19 01:15 Est GFR (CKD-EPI)NonAf 91.57 11/08/19 01:15 Random Glucose 121 mg/dL (74-106) H 11/08/19 01:15 Calcium 9.7 mg/dL (8.5-10.1) 11/08/19 01:15 Total Bilirubin 0.3 mg/dL (0.2-1) 11/08/19 01:15 AST 16 U/L (15-37) 11/08/19 01:15 ALT 19 U/L (13-61) 11/08/19 01:15 Alkaline Phosphatase 62 U/L (45-117) 11/08/19 01:15 Troponin I < 0.02 ng/ml (0.00-0.05) 11/08/19 01:15 Total Protein 8.4 g/dl (6.4-8.2) H 11/08/19 01:15 Albumin 4.1 g/dl (3.4-5.0) 11/08/19 01:15 Electrolytes unremarkable Normal Cr No transaminitis Tpn undetectable D-dimer normal; unlikely patient has a DVT/PE Patient feeling better after treatment and fluids HR improved To follow up with remote broadcast technician Return precautions Stable for discharge Xray findings sound consistent with known findings already known by patient; already scheduled for further evaluation EXAM#: TYPE/EXAM: RESULT: [id number] RAD/CHEST PA LAT Chest: Shortness of breath 2 views of the chest reveal clear well aerated lungs , normal heart, normal aorta and increased hilar markings which could represent adenopathy. Angles are sharp. The bones and soft tissues are intact. Impression : Possible bilateral hilar adenopathy. Follow-up recommended. Findings not evident on . ER at [place] notified of findings on 11/08/2019 at 0717 hours Reported By: Usama Reddy MD 11/08/19 0718 Past History - Past Medical History Allergies/Adverse Reactions: Allergies Allergy/AdvReac Type Severity Reaction Status Date / Time No Known Allergies Allergy Verified 11/08/19 00:19 Home Medications: Ambulatory Orders Albuterol Sulfate Inhaler - [Ventolin HFA Inhaler -] 2 inh PO Q4H 03/20/19 Buspirone HCl [Buspar -] 5 mg PO TID 03/20/19 Guaifenesin [Robitussin] 10 ml PO Q6H PRN #1 bottle 11/08/19 Saliva Substitute Combo No.9 [Biotene] 237 ml MM DAILY #1 bottle 11/08/19 Asthma: Yes COPD: No - Psycho Social/Smoking Cessation Hx Smoking History: Never smoked Have you smoked in the past 12 months: No Hx Alcohol Use: No Drug/Substance Use Hx: No Substance Use Type: None Hx Substance Use Treatment: No *Physical Exam - Vital Signs Last Vital Signs Temp Pulse Resp BP Pulse Ox 98.9 F 126 H 22 H 138/91 93 L 11/08/19 00:20 11/08/19 00:20 11/08/19 00:20 11/08/19 00:20 11/08/19 00:20 ED Treatment Course - LABORATORY CBC & Chemistry Diagram: 11/08/19 01:15 11/08/19 01:15 Discharge - Discharge Information Problems reviewed: Yes Clinical Impression/Diagnosis: Cough Condition: Improved Disposition: HOME - Additional Discharge Information Prescriptions: Guaifenesin [Robitussin] 10 ml PO Q6H PRN #1 bottle PRN Reason: Cough Saliva Substitute Combo No.9 [Biotene] 237 ml MM DAILY #1 bottle - Follow up/Referral - Patient Discharge Instructions Patient Printed Discharge Instructions: DI for Cough -- Adult Additional Instructions: You came into the emergency department with cough and shortness of breath. Lab work, Xray, and EKG did not indicate acute pathology. Prescriptions sent to your pharmacy. Take as instructed. Continue taking home medications as prescribed by your physician. Follow up with your primary care physician within 72 hours. Call and make an appointment to further evaluate your symptoms. Your workup is not complete until you do so. Immediate medical attention is required if you have: any chest pain, palpitations, shortness of breath, severe headaches, changes in vision, episodes of fainting, focal numbness or weakness, any severe abdominal pain, any black tarry stool, or any new or concerning symptoms. If you think you are having an emergency, call for emergency medical services or present to the emergency department right away. - Post Discharge Activity Work/Back to School Note: Back to Work
[2019-11-08 00:27] VITALS: TEMP 98.9; BMI 25.9
[2019-11-08] MEDS ORDERED: SODIUM CHLORIDE 1,000 ML IV STA (00:50)
[2019-11-08] MEDS ORDERED: ALBUTEROL SO4 0.083% IH SOL 2.5 MG/3 ML VIAL.NEB. NEB ONE ×2 (00:53→01:06)
[2019-11-08] MEDS ORDERED: guaiFENesin 200 MG/10 ML 10 ML UNIT-DOSE CUPS PO ONE (00:53)
[2019-11-08] MEDS ORDERED: guaiFENesin 200 MG/10 ML 10 ML UNIT-DOSE CUPS ONE (01:07)
--- NOTE | 2019-11-08 01:07 | PDOC ---
Documentation entered by Jessica Catherine SCRIBE, acting as scribe for Shelly Hunt MD. Shelly Hunt MD: This documentation has been prepared by the rosalbaibe, Jessica Catherine SCRIBE, under my direction and personally reviewed by me in its entirety. I confirm that the documentation accurately reflects all work, treatment, procedures, and medical decision making performed by me. Attending Attestation - Resident Resident Name: KimberlyRoroTerrie - ED Attending Attestation I have performed the following: I have examined & evaluated the patient, The case was reviewed & discussed with the resident, I agree w/resident's findings & plan, Exceptions are as noted - HPI HPI: 11/08/19 00:47 The patient is a 39-year-old female with a past medical history significant for asthma and Sjogren's syndrome who presents to the emergency department with several days of a cough and a rash. The patient reports following up for the symptoms around 3:00 pm, where she was given prednisone and albuterol. - Physicial Exam PE: 11/08/19 00:47 GENERAL: Well-appearing, well-nourished. No apparent distress. HEENT: Normocephalic, atraumatic. PERRL, EOM intact. CARDIOVASCULAR: +tachycardic. Normal S1, S2. Regular rhythm. PULMONARY: good air movement in all lung rojas. Clear to auscultation bilaterally. ABDOMEN: Soft, non-distended, non-tender. EXTREMITIES: Normal ROM in all four extremities. No gross deformities. SKIN: Warm, dry. No rash NEUROLOGICAL: No focal neurological deficits. - Medical Decision Making 11/08/19 01:02 39-year-old female with a history of asthma presents with complaint of coughing for several days, rash HPI she had a recent visit with equine manager who did a panel and she said that she had was positive for connective tissue disease Her lung exam is negative for any crackles or rales or wheezing however she appears to have a volitional expiratory upper airway noise ekg sinus tachy 122 -she states she has used her albuterol inhaler and prednisone earlier today at 3pm given to her by Urgent Care 11/08/19 01:05 11/08/19 01:06 Past medical history asthma Past surgical history oophorectomy, breast implant She was seen in March 2019 for chest pain and had an echo that showed normal LV function and ejection fraction of 60 to 65% 11/08/19 01:55 D-dimer is negative CBC is unremarkable 11/08/19 01:56 Chemistry showed glucose slightly bumped at 120 but renal function and electrolytes are unremarkable 11/08/19 01:57 Impression cough, recent work-up for connective tissue diseases by equine manager plan CAT scan this Thursday already scheduled by equine manager
[2019-11-08 01:30] LABS: BASO % 0.6 % (0-2.0); HEMATOCRIT 42.1 % (32.4-45.2); LYMPH % 8.2 % (8-40); MCH 30.2 pg (25.7-33.7); MCHC 33.3 g/dl (32.0-36.0); MEAN CELL VOLUME 90.7 fl (80-96); MEAN PLT VOLUME 8.8 fl (7.5-11.1); MONO % 2.5 % (3.8-10.2); NEUT % 88.7 % (42.8-82.8); PLATELET COUNT 370 K/MM3 (134-434); RBC 4.64 M/mm3 (3.60-5.2); RDW 13.3 % (11.6-15.6); WHITE BLOOD COUNT 6.1 K/mm3 (4.0-10.0)
[2019-11-08 01:55] LABS: ALBUMIN 4.1 g/dl (3.4-5.0); ALK PHOS 62 U/L (45-117); ANION GAP 7 MMOL/L (8-16); BILIRUBIN,TOTAL 0.3 mg/dL (0.2-1); BLOOD UREA NITROGEN 11.6 mg/dL (7-18); CALCIUM 9.7 mg/dL (8.5-10.1); CHLORIDE 106 mmol/L (98-107); CO2 26 mmol/L (21-32); CREATININE 0.8 mg/dL (0.55-1.3); GLUCOSE,RANDOM 121 mg/dL (74-106); POTASSIUM 4.6 mmol/L (3.5-5.1); SGOT/AST 16 U/L (15-37); SGPT/ALT 19 U/L (13-61); SODIUM 139 mmol/L (136-145); TOT PROT 8.4 g/dl (6.4-8.2)
[2019-11-08 02:14] VITALS: BP 131/86; PULSE 103
--- NOTE | 2019-11-08 09:17 | EKG ---
Test Reason : Blood Pressure : / mmHG Vent. Rate : 122 BPM Atrial Rate : 122 BPM P-R Int : 116 ms QRS Dur : 072 ms QT Int : 322 ms P-R-T Axes : 056 -04 051 degrees QTc Int : 458 ms SINUS TACHYCARDIA INFERIOR INFARCT , AGE UNDETERMINED CANNOT RULE OUT ANTERIOR INFARCT , AGE UNDETERMINED ABNORMAL ECG WHEN COMPARED WITH ECG OF 20-MAR-2019 17:30, INFERIOR INFARCT IS NOW PRESENT Confirmed by Vickey Lino MD ([id number]) on 11/08/2019 9:16:50 AM Referred By: Confirmed By:Vickey Lino MD
== END 2019-11-08 02:50 | disposition home or self-care (01) ==
LOC: JER 23:56
PROC: 3E0F7GC Introduction of Other Therapeutic Substance into Respiratory Tract, Via Natural or Artificial Opening (ICD-10-PCS; principal; 2019-11-07)
PROC: 3E0337Z Introduction of Electrolytic and Water Balance Substance into Peripheral Vein, Percutaneous Approach (ICD-10-PCS; 2019-11-07)
DX: J45.909 Unspecified asthma, uncomplicated (principal); R05 Cough; M35.00 Sjogren syndrome, unspecified
CPT/HCPCS: 36415; 71046-TC-FY; 80053; 84484; 84703; 85025; 85379; 93005; 93010; 99285-25; J7030

== ENCOUNTER 2020-08-23 02:42 | Emergency (ER) | payer OTHER ==
[2020-08-23 03:15] VITALS: BP 119/77; PULSE 113; TEMP 98.3; BMI 27.3
[2020-08-23] MEDS ORDERED: SODIUM CHLORIDE 1,000 ML IV STA (03:45)
[2020-08-23] MEDS ORDERED: ACETAMINOPHEN 500 MG TABLET (FP) PO ONE (03:45)
[2020-08-23] MEDS ORDERED: ACETAMINOPHEN 325 MG TABLET (FP) ONE (03:58)
[2020-08-23 04:46] LABS: BASO % 1.1 % (0-2.0); EOS % 1.7 % (0-4.5); HEMOGLOBIN 13.4 GM/dL (10.7-15.3); LYMPH % 8.6 % (8-40); MCH 30.7 pg (25.7-33.7); MCHC 33.6 g/dl (32.0-36.0); MEAN CELL VOLUME 91.4 fl (80-96); MEAN PLT VOLUME 9.5 fl (7.5-11.1); MONO % 9.5 % (3.8-10.2); NEUT % 79.1 % (42.8-82.8); PLATELET COUNT 260 K/MM3 (134-434); RBC 4.37 M/mm3 (3.60-5.2); RDW 13.9 % (11.6-15.6); WHITE BLOOD COUNT 8.7 K/mm3 (4.0-10.0)
[2020-08-23 05:06] LABS: POTASSIUM 5.8 mmol/L (3.5-5.1)
[2020-08-23 05:08] LABS: CALCIUM 9.3 mg/dL (8.5-10.1)
[2020-08-23 05:09] LABS: ALBUMIN 3.9 g/dl (3.4-5.0); BLOOD UREA NITROGEN 8.7 mg/dL (7-18); GLUCOSE,RANDOM 81 mg/dL (74-106); LIPASE 153 U/L (73-393)
[2020-08-23 05:12] LABS: CREATININE 0.7 mg/dL (0.55-1.3); SGOT/AST 40 U/L (15-37); SGPT/ALT 34 U/L (13-61)
[2020-08-23 05:13] LABS: BILIRUBIN,TOTAL 0.6 mg/dL (0.2-1); TOT PROT 7.7 g/dl (6.4-8.2)
[2020-08-23 05:15] LABS: ALK PHOS 53 U/L (45-117)
[2020-08-23 05:25] LABS: ANION GAP 4 MMOL/L (8-16); CHLORIDE 104 mmol/L (98-107); CO2 28 mmol/L (21-32); SODIUM 136 mmol/L (136-145)
[2020-08-23 05:27] LABS: URINE APPEARANCE CLEAR; URINE BILIRUBIN NEGATIVE (NEGATIVE); URINE COLOR YELLOW; URINE GLUCOSE (UA) NEGATIVE (NEGATIVE); URINE KETONE NEGATIVE (NEGATIVE); URINE LEUK ESTERASE NEGATIVE (NEGATIVE); URINE NITRITE NEGATIVE (NEGATIVE); URINE PROTEIN NEGATIVE (NEGATIVE); URINE UROBILINOGEN 0.2 mg/dL (0.2-1.0)
[2020-08-23] MEDS ORDERED: SUCRALFATE 1 GM TABLET (FP) PO ONE (05:30)
[2020-08-23] MEDS ORDERED: SUCRALFATE 1 GM TABLET (FP) ONE (05:50)
[2020-08-23 07:47] LABS: POTASSIUM 4.5 mmol/L (3.5-5.1)
[2020-08-23 07:53] LABS: CREATININE 0.6 mg/dL (0.55-1.3)
[2020-08-23 08:24] LABS: BLOOD UREA NITROGEN 7.9 mg/dL (7-18); CALCIUM 8.4 mg/dL (8.5-10.1)
[2020-08-23] MEDS ORDERED: KETOROLAC TROMETHAMINE 15 MG/ML VIAL IVPUSH ONE (10:21)
[2020-08-23] MEDS ORDERED: KETOROLAC TROMETHAMINE 15 MG/ML VIAL ONE (10:55)
== END 2020-08-23 11:02 | disposition home or self-care (01) ==
LOC: JER 02:42
PROC: 3E0333Z Introduction of Anti-inflammatory into Peripheral Vein, Percutaneous Approach (ICD-10-PCS; principal; 2020-08-23)
PROC: 3E0337Z Introduction of Electrolytic and Water Balance Substance into Peripheral Vein, Percutaneous Approach (ICD-10-PCS; 2020-08-23)
DX: R10.2 Pelvic and perineal pain (principal); R30.0 Dysuria; R14.0 Abdominal distension (gaseous)
CPT/HCPCS: 36415; 74177-TC; 76830-TC; 80048; 80053; 81003; 83690; 84702; 84703; 85025; 87086; 93005; 93010; 99285-25

== ENCOUNTER 2023-02-19 17:13 | Emergency (ER) | payer OTHER ==
[2023-02-19 17:22] VITALS: BP 133/94; PULSE 120; RESP 18; TEMP 98.1; BMI 27.3
[2023-02-19] MEDS ORDERED: methylPREDNISolone NA SUCC 125 MG/2 ML VIAL IVPUSH ONE (17:48)
[2023-02-19] MEDS ORDERED: morphine CARPU-JECT 4 MG/1 ML DISP.SYRIN IVPUSH ONE (17:50)
[2023-02-19] MEDS ORDERED: ONDANSETRON 4 MG/2 ML VIAL IVPUSH ONE (17:50)
[2023-02-19] MEDS ORDERED: methylPREDNISolone NA SUCC 125 MG/2 ML VIAL ONE (18:06)
[2023-02-19 18:23] LABS: BASO % 1.1 % (0-2.0); HEMATOCRIT 38.8 % (32.4-45.2); MCH 30.1 pg (25.7-33.7); MCHC 33.4 g/dl (32.0-36.0); MEAN CELL VOLUME 90.1 fl (80-96); MONO % 9.1 % (3.8-10.2); NEUT % 69.8 % (42.8-82.8); PLATELET COUNT 319 10^3/uL (134-434); RBC 4.31 M/mm3 (3.60-5.2); RDW 14.3 % (11.6-15.6); WHITE BLOOD COUNT 4.7 K/mm3 (4.0-10.0)
[2023-02-19] MEDS ORDERED: ONDANSETRON 4 MG/2 ML VIAL ONE (18:25)
[2023-02-19] MEDS ORDERED: morphine SULFATE 4 MG/ML VIAL ONE (18:25)
[2023-02-19 18:42] LABS: CHLORIDE 107 mmol/L (98-107); POTASSIUM 4.3 mmol/L (3.5-5.1); SODIUM 140 mmol/L (136-145)
[2023-02-19 18:44] LABS: CALCIUM 9.7 mg/dL (8.5-10.1)
[2023-02-19 18:45] LABS: ALBUMIN 4.5 g/dl (3.4-5.0); ANION GAP 4 MMOL/L (8-16); BLOOD UREA NITROGEN 14.9 mg/dL (7-18); CO2 29 mmol/L (21-32); GLUCOSE,RANDOM 99 mg/dL (74-106)
[2023-02-19 18:48] LABS: CREATININE 0.8 mg/dL (0.55-1.3); SGOT/AST 18 U/L (15-37); SGPT/ALT 22 U/L (13-61)
[2023-02-19 18:49] LABS: BILIRUBIN,TOTAL 0.2 mg/dL (0.2-1); TOT PROT 7.8 g/dl (6.4-8.2)
[2023-02-19 18:51] LABS: ALK PHOS 51 U/L (45-117)
[2023-02-19 19:19] LABS: EPI CELLS 9 /uL (0-25.1); HYALINE CASTS 0 /uL (0-3.1); PH,URINE 6.5 (5.0-8.0); URINE APPEARANCE CLEAR; URINE BILIRUBIN NEGATIVE (NEGATIVE); URINE COLOR DK YELLOW; URINE GLUCOSE (UA) NEGATIVE (NEGATIVE); URINE KETONE NEGATIVE (NEGATIVE); URINE LEUK ESTERASE NEGATIVE (NEGATIVE); URINE NITRITE POSITIVE (NEGATIVE); URINE PROTEIN NEGATIVE (NEGATIVE); URINE RBC 24 /uL (0-23.9); URINE UROBILINOGEN 0.2 mg/dL (0.2-1.0); URINE WBC 5 /uL (0-25.8)
[2023-02-19 19:21] LABS: HCG,QUALITATIVE URINE Negative; URINE BACTERIA 129.8 /uL (0-1359)
[2023-02-19 19:22] LABS: ERYTHROCYTE SEDIMENTATION RATE 7 mm/hr (0-20)
== END 2023-02-19 20:52 | disposition home or self-care (01) ==
LOC: JERFT 17:13 → JER 17:13
PROC: 3E033GC Introduction of Other Therapeutic Substance into Peripheral Vein, Percutaneous Approach (ICD-10-PCS; principal; 2023-02-19)
PROC: 3E033GC Introduction of Other Therapeutic Substance into Peripheral Vein, Percutaneous Approach (ICD-10-PCS; 2023-02-19)
PROC: 3E033GC Introduction of Other Therapeutic Substance into Peripheral Vein, Percutaneous Approach (ICD-10-PCS; 2023-02-19)
DX: M54.6 Pain in thoracic spine (principal)
CPT/HCPCS: 0241U-QW; 36415; 71046-TC-FY; 72128-TC; 80053; 81003; 84703; 85025; 85379; 85651; 86140; 87040; 87086; 93005; 93010; 99285-25